=== PATIENT | female | born 1975 | race Caucasian/White ===

== ENCOUNTER 2016-06-27 23:01 | Emergency (ER) | payer MEDICAID ==
[~2016-06-27] VITALS: Ht 167.6 cm; Wt 52.2 kg
[~2016-06-27 23:01] MED LIST: CLINDAMYCIN HC300 MG ORAL; HYDROCODON-ACE1 EA15 ORAL; VANCOCIN250 MG ORAL
[2016-06-27 23:15] VITALS: BP 123/83
[2016-06-28] MEDS ORDERED: HYDROmorphone 1mg/ml Carpuject IM ONE (00:30)
[2016-06-28 00:40] VITALS: BP 123/83
--- NOTE | 2016-06-28 00:55 | Emergency Room Report ---
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 Her is/was a Dr. She has multiple abscess in both her thighs. I saw her about 3 weeks ago for I&D on the left thigh. It grew out Escherichia coli and was sensitive to everything except Bactrim and ampicillin. She present now with abscess to the right thigh and possibly the left thigh. Pain is 10 out of 10. Worse with movement. No fever or chills. No nausea no vomiting. She claimed that she is out of her Dilaudid, 8 mg, every 2-3 hours because her pain specialist is out on sabbatical. This is the same story that they told me on June 11. She never showed up for recheck and packing removal. She claimed that she send the packing to the lab and it grew out MRSA. When I asked the sensitivity to antibiotics, she said she did not know, even though she claimed that the semiconductor lab technician gave her the report. When I asked who ordered the tests, she said that she had a previous ordered from her pain specialist. Allergies: Coded Allergies: ASPIRIN (Verified Allergy, Unknown, 01/31/10) IBUPROFEN (Verified Allergy, Unknown, 01/31/10) METOCLOPRAMIDE (Verified Allergy, Unknown, 01/31/10) Patient History Past Medical History: see triage record, old chart reviewed Past Surgical History: other Pertinent Family History: none Last Menstrual Period: menopause Now: No Immunizations: UTD Reviewed Nursing Documentation: PMH: Agreed, PSxH: Agreed Review of Systems Eye: Denies: blurred vision, eye pain ENT: Denies: ear pain, nose congestion, throat swelling Respiratory: Denies: cough, shortness of breath Cardiovascular: Denies: chest pain, palpitations Gastrointestinal: Denies: abdominal pain, diarrhea, nausea, vomiting Musculoskeletal: Denies: back pain, joint pain Skin: Denies: rash Neurological: Denies: headache, numbness Endocrine: Denies: increased thirst, increased urine Hematologic/Lymphatic: Denies: easy bruising All Other Systems: negative except mentioned in HPI Physical Exam Vital Signs Date Time Temp Pulse Resp B/P Pulse Ox O2 Delivery O2 Flow Rate FiO2 06/27/16 23:06 98.1 95 16 123/83 100 Room Air vitals normal Sp02 EP Interpretation: reviewed, normal General Appearance: well appearing, no apparent distress, alert Head: normocephalic, atraumatic Eyes: bilateral eye EOMI, bilateral eye PERRL ENT: hearing grossly normal, normal pharynx Neck: full range of motion, supple, no meningismus Respiratory: chest non-tender, lungs clear, normal breath sounds Cardiovascular #1: regular rate, rhythm, no murmur Gastrointestinal: normal bowel sounds, non tender, no mass, no organomegaly, no bruit, non-distended Musculoskeletal: back normal, gait/station normal, normal range of motion, other - Right thigh: There is a fluctuant area in the proximal thigh measuring about 2 cm. Tender to palpation. Also indurated from previous abscess. Neurologic: alert, oriented x3 Psychiatric: mood/affect normal Skin: warm/dry Procedures Additional Procedure Procedure Narrative Procedure: Aspiration Indication: Abscess Description: I cleaned both eyes with chlorhexidine. Local injection with 1% lidocaine with epinephrine. I injected about 2 mL each. Using a 16-gauge needle and syringe, I tried to aspirate the tender area on the left thigh. There was no abscess. On the right thigh I was able to aspirate small amount of pus. Patient tolerated procedure without a problem. Medical Decision Making Diagnostic Impression: Primary Impression: Abscess Additional Impression: Opioid dependence Qualified Codes: F11.20 - Opioid dependence, uncomplicated ER Course Patient with abscess to the right thigh. Because I aspirated pus, I wanted to do a full I&D with packing. Patient wanted IV Dilaudid prior to starting. Explained to her that I will give her an IM shot. She said she does not want to feel the pain from the I&D. Explained to her that I already did local anesthetic with lidocaine. She may show some pressure from the scalpel but there is no way that she will be pain-free. She tolerated procedure last night without any problem. At this point she is already dressed and wanted to leave. She will be leaving AGAINST MEDICAL ADVICE. She refused any paperwork or prescription. She did not stay long enough for me to axle turner any prescription. Her story that her pain doctor is on sabbatical is incredulous. Initially, when I ask her why she didn't come back for wound check and packing removal, she said that she went to her pain specialist instead. When reported this out later, she said that she did not go to the pain specialist. Instead says she went to her doctor. The fact that she received a culture report yet did not know the sensitivity of antibiotics is questionable. 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 Last Vital Signs Date Time Temp Pulse Resp B/P Pulse Ox O2 Delivery O2 Flow Rate FiO2 06/27/16 23:15 98.2 78 16 123/83 100 Room Air Status: unchanged Disposition: AGAINST MEDICAL ADVICE Condition: Stable Referrals: NON PHYSICIAN (PCP) CAROL FRANCOIS M.D. June 28, 2016 00:55
== END 2016-06-28 00:40 | disposition left against medical advice (07) ==
LOC: EMR 23:14
DX: L02.415 Cutaneous abscess of right lower limb (principal); F11.20 Opioid dependence, uncomplicated; Z88.6 Allergy status to analgesic agent
CPT/HCPCS: 10060